=== PATIENT | female | born 1985 | race Caucasian/White ===

== ENCOUNTER 2016-06-26 06:03 | Emergency (ER) | payer SELFPAY ==
[~2016-06-26] VITALS: Ht 165.1 cm; Wt 55.3 kg
[~2016-06-26 06:03] MED LIST: RANI300T7 PO; ZOLM5TAB10 PO
[2016-06-26] MEDS ORDERED: KETOROLAC TROMETHAMINE INJ 30 MG/ML VIAL ONE (06:47)
[2016-06-26] MEDS ORDERED: IV NS 0.9% 1,000 ML ONE (06:47)
[2016-06-26] MEDS ORDERED: diphenhydrAMINE HCL 50 MG/ML VIAL ONE (06:47)
[2016-06-26] MEDS ORDERED: IV SET PRIMARY 1 EA INFUS.SET MC ONE (06:47)
[2016-06-26] MEDS ORDERED: LORAZEPAM INJ 2 MG/ML VIAL ONE (06:48)
[2016-06-26] MEDS ORDERED: ONDANSETRON HCL/PF 4 MG/2 ML VIAL ONE (06:49)
[2016-06-26] MEDS ORDERED: KETOROLAC TROMETHAMINE INJ 30 MG/ML VIAL IV ONE (07:00)
[2016-06-26] MEDS ORDERED: METOCLOPRAMIDE HCL 10 MG/2 ML VIAL IV ONE (07:00)
[2016-06-26] MEDS ORDERED: LORAZEPAM INJ 2 MG/ML VIAL IV ONE (07:00)
[2016-06-26] MEDS ORDERED: ONDANSETRON HCL/PF 4 MG/2 ML VIAL IV ONE (07:00)
[2016-06-26] MEDS ORDERED: diphenhydrAMINE HCL 50 MG/ML VIAL IV ONE (07:00)
[2016-06-26] MEDS ORDERED: IV NS 0.9% 1,000 ML BAG IV ONE (07:00)
[2016-06-26] MEDS ORDERED: LIDOCAINE 5% (PATCH) 1 EA PATCH TP SCH (07:30)
[2016-06-26] MEDS ORDERED: HYDROCODONE/APAP 5/325MG 1 EACH TABLET PO ONE (07:30)
[2016-06-26] MEDS ORDERED: HYDROCODONE/APAP 5/325MG 1 EACH TABLET ONE (07:46)
[2016-06-26 08:30] VITALS: BP 128/97
== END 2016-06-26 08:31 | disposition home or self-care (01) ==
LOC: ER 06:07
DX: G43.909 Migraine, unspecified, not intractable, without status migrainosus (principal); K21.9 Gastro-esophageal reflux disease without esophagitis; Z90.49 Acquired absence of other specified parts of digestive tract; Z88.6 Allergy status to analgesic agent; Z88.8 Allergy status to other drugs, medicaments and biological substances
CPT/HCPCS: 96361; 96374; 96375; 99284; A4606; J1200; J1885; J2060; J2405; J7030; Z7610

== ENCOUNTER 2016-09-29 19:03 | Emergency (ER) | payer MEDICARE, MEDICAID ==
[~2016-09-29] VITALS: Ht 165.1 cm; Wt 50.8 kg
--- NOTE | 2016-09-29 19:20 | NUR ---
TO BED 3 AMBULATORY C/O FEVER AND N/V/D ON MONDAY, NOW C/O DECREASE APPETITE. PT AAOX4 NO ACUTE DISTRESS NOTED, RESP EVEN AND UNLABORED.URINE SAMPLE COLLECTED. PENDING ER MD ZAIDI.
--- NOTE | 2016-09-29 19:33 | NUR ---
LILA HOLLAND AT BEDSIDE TO DYAN CHILEL.
--- NOTE | 2016-09-29 19:44 | NUR ---
MACARIO PARK AT BEDSIDE TO DRAW BLOOD FROM PICC LINE.
[2016-09-29] MEDS ORDERED: ONDANSETRON HCL/PF 4 MG/2 ML VIAL ONE (19:46)
[2016-09-29] MEDS ORDERED: MORPHINE SULFATE INJ 4 MG/ML DISP.SYRIN ONE (19:46)
--- NOTE | 2016-09-29 19:50 | NUR ---
RN AT BEDSIDE TO MEDICATE PT.
[2016-09-29 19:54] LABS: APPEARANCE,URINE Clear (CLEAR); BLOOD, URINE Trace-intact Ery/uL (NEGATIVE); COLOR,URINE Yellow (YELLOW); KETONES,URINE 40 (NEGATIVE); LEUKOCYTE ESTERASE ,URINE Small (NEGATIVE); NITRITE, URINE Negative (NEGATIVE); PROTEIN,URINE Trace mg/dl (NEGATIVE); UGLUCOSE Negative (NEGATIVE); UROBILINOGEN,URINE 0.2 EU/dL (0.2)
[2016-09-29 19:58] LABS: BASOPHILS % (AUTO) 0.3 % (0.0-2.0); EOSINOPHILS # (AUTO) 0.1 /CMM (0.0-0.7); EOSINOPHILS % (AUTO) 2.4 % (0.0-6.0); HEMATOCRIT 31 % (33-45); HEMOGLOBIN 10.4 g/dL (11.5-14.8); LYMPHOCYTES # (AUTO) 1.1 /CMM (0.8-4.8); LYMPHOCYTES % (AUTO) 23.7 % (20.0-44.0); MEAN CORPUSCULAR HEMOGLOBIN 29 PG (26.0-33.0); MEAN CORPUSCULAR HGB CONC 34 g/dl (31.0-36.0); MEAN CORPUSCULAR VOLUME 87 fL (82-100); MONOCYTES # (AUTO) 0.4 /CMM (0.1-1.30); MONOCYTES % (AUTO) 7.6 % (2.0-12.0); NEUTROPHILS # (AUTO) 3.2 /CMM (1.8-8.9); PLATELET COUNT (AUTO) 210 /CMM (150-450); RDW COEFFICIENT OF VARIATION 12.7 (11.5-15.0); WHITE BLOOD COUNT (AUTO) 4.9 K/uL (4.3-11.0)
[2016-09-29 19:59] LABS: BILIRUBIN,URINE SMALL (NEGATIVE); PREGNANCY TEST URINE QUAL NEG (NEGATIVE)
[2016-09-29] MEDS ORDERED: ONDANSETRON HCL/PF 4 MG/2 ML VIAL IV ONE (20:00)
[2016-09-29] MEDS ORDERED: MORPHINE SULFATE INJ 2 MG/ML DISP.SYRIN IV ONE (20:00)
[2016-09-29 20:01] LABS: CALCIUM, SERUM 8.6 mg/dL (8.5-10.1); CREATININE 0.8 mg/dL (0.6-1.3); POTASSIUM 3.8 mmol/L (3.5-5.1)
[2016-09-29 20:06] LABS: ALBUMIN 4.4 g/dL (3.4-5.0); BILIRUBIN,DIRECT 0.1 mg/dL (0.0-0.2); BILIRUBIN,TOTAL 0.5 mg/dL (0.2-1.0); TOTAL PROTEIN, SERUM 7.1 g/dL (6.4-8.2)
[2016-09-29 20:12] LABS: ADD URINE CULTURE YES; BACTERIA,URINE Many /HPF (None Seen); SQUAMOUS EPITHELIAL CELL,UR Moderate /HPF (None Seen)
[2016-09-29 20:13] LABS: MUCUS,URINE Many /LPF (None Seen)
[2016-09-29] MEDS ORDERED: PANTOPRAZOLE 40 MG VIAL ONE (21:07)
--- NOTE | 2016-09-29 21:29 | NUR ---
Patient discharged to home in stable condition. Written and verbal after care instructions given. Patient verbalizes understanding of instruction. ambulatory with a steady gait noted. pt aaox4 no acute distress noted, resp even and unlabored. advice pt not to drive or operate any machinery due to pt was given morphine. pt verbalize understanding. pt mom at bedside to take pt home.
[2016-09-29 21:30] VITALS: BP 127/75
[2016-09-29] MEDS ORDERED: PANTOPRAZOLE 40 MG VIAL IV ONE (21:30)
== END 2016-09-29 21:30 | disposition home or self-care (01) ==
LOC: ER 19:05
DX: N39.0 Urinary tract infection, site not specified (principal); D64.9 Anemia, unspecified; G43.909 Migraine, unspecified, not intractable, without status migrainosus; K21.9 Gastro-esophageal reflux disease without esophagitis; K85.90 Acute pancreatitis without necrosis or infection, unspecified; Z90.49 Acquired absence of other specified parts of digestive tract; Z88.6 Allergy status to analgesic agent; Z88.8 Allergy status to other drugs, medicaments and biological substances
CPT/HCPCS: 36415; 80048-TC; 80076-TC; 81000-TC; 83690-TC; 84703-TC; 85025-TC; 87086-TC; A4606; C9113; J2270; J2405; Z7610

== ENCOUNTER 2016-11-20 01:14 | Emergency (ER) | payer MEDICARE, MEDICAID ==
[~2016-11-20] VITALS: Ht 165.1 cm; Wt 54.4 kg
--- NOTE | 2016-11-20 01:30 | NUR ---
TO BED 07 A 31 YO FEMALE BIBSELF, C/O EPIGASTRIC PAIN SINCE 10PM AFTER EATING A SALAD WITH FISH, WITH N/V. VSS. NO S/S OF ACUTE DISTRESS. BREATHING EVEN AND UNLABORED. NONDIAPHORETIC. GOWNED. COMFORT MEASURES RENDERED. AWAITING FOR ER MD ZAIDI.
[2016-11-20] MEDS ORDERED: ONDANSETRON HCL/PF 4 MG/2 ML VIAL ONE (01:59)
[2016-11-20] MEDS ORDERED: MORPHINE SULFATE INJ 4 MG/ML DISP.SYRIN ONE ×2 (01:59→03:59)
[2016-11-20] MEDS ORDERED: diphenhydrAMINE HCL 50 MG/ML VIAL ONE (01:59)
[2016-11-20] MEDS ORDERED: FAMOTIDINE/PF INJ 20 MG/2 ML VIAL IV ONE ×2 (01:59→02:00)
[2016-11-20] MEDS ORDERED: MORPHINE SULFATE INJ 2 MG/ML DISP.SYRIN IV ONE ×2 (02:00→04:00)
[2016-11-20] MEDS ORDERED: ONDANSETRON HCL/PF 4 MG/2 ML VIAL IV ONE (02:00)
[2016-11-20] MEDS ORDERED: diphenhydrAMINE HCL 50 MG/ML VIAL IV ONE (02:00)
[2016-11-20 02:08] LABS: BASOPHILS % (AUTO) 0.5 % (0.0-2.0); EOSINOPHILS # (AUTO) 0.2 /CMM (0.0-0.7); EOSINOPHILS % (AUTO) 3.1 % (0.0-6.0); HEMATOCRIT 27 % (33-45); HEMOGLOBIN 8.9 g/dL (11.5-14.8); LYMPHOCYTES # (AUTO) 2.6 /CMM (0.8-4.8); LYMPHOCYTES % (AUTO) 48.5 % (20.0-44.0); MEAN CORPUSCULAR HEMOGLOBIN 28 PG (26.0-33.0); MEAN CORPUSCULAR HGB CONC 33 g/dl (31.0-36.0); MEAN CORPUSCULAR VOLUME 85 fL (82-100); MONOCYTES # (AUTO) 0.4 /CMM (0.1-1.30); MONOCYTES % (AUTO) 7.8 % (2.0-12.0); NEUTROPHILS # (AUTO) 2.1 /CMM (1.8-8.9); NEUTROPHILS % (AUTO) 40.1 % (43.0-81.0); PLATELET COUNT (AUTO) 289 /CMM (150-450); RDW COEFFICIENT OF VARIATION 15.1 (11.5-15.0); RED BLOOD CELL COUNT(AUTO) 3.19 MIL/uL (4.0-5.2); WHITE BLOOD COUNT (AUTO) 5.3 K/uL (4.3-11.0)
[2016-11-20 02:17] LABS: CALCIUM, SERUM 8.5 mg/dL (8.5-10.1); CREATININE 0.6 mg/dL (0.6-1.3)
[2016-11-20 02:22] LABS: ALBUMIN 3.6 g/dL (3.4-5.0); BILIRUBIN,DIRECT 0.1 mg/dL (0.0-0.2); BILIRUBIN,TOTAL 0.2 mg/dL (0.2-1.0); TOTAL PROTEIN, SERUM 6.3 g/dL (6.4-8.2)
--- NOTE | 2016-11-20 03:10 | NUR ---
PATIENT REPORTED STILL FEELING NAUSEOUS AND THE EPIGASTRIC PAIN REOCCUR AT 9/10. DR ASCENCIO IS NOTIFIED AND HE SAID, "IM GOING TO GO SEE HER."
[2016-11-20] MEDS ORDERED: MORPHINE SULFATE INJ 2 MG/ML DISP.SYRIN ONE (03:59)
--- NOTE | 2016-11-20 04:29 | NUR ---
Patient discharged to home in stable condition. Written and verbal after care instructions given. Patient verbalizes understanding of instruction. Patient is ambulatory with a steady gait, accompanied by familiy. VSS. NAD noted.
[2016-11-20 04:30] VITALS: BP 112/71
== END 2016-11-20 04:31 | disposition home or self-care (01) ==
LOC: ER 01:15
DX: R10.13 Epigastric pain (principal); G89.29 Other chronic pain; D64.9 Anemia, unspecified; K85.90 Acute pancreatitis without necrosis or infection, unspecified; Z90.49 Acquired absence of other specified parts of digestive tract; Z88.5 Allergy status to narcotic agent; Z88.8 Allergy status to other drugs, medicaments and biological substances
CPT/HCPCS: 36415; 80048; 80076; 83690; 85025; 96374; 96375; 96376; 99284; A4606; J1200; J2270 ×3; J2405; J3490; Z7610

== ENCOUNTER 2016-12-24 23:13 | Emergency (ER) | payer MEDICARE, MEDICAID ==
[~2016-12-24] VITALS: Ht 165.1 cm; Wt 49.9 kg
--- NOTE | 2016-12-25 00:12 | NUR ---
DR. EDOUARD AT BEDSIDE FOR EVAL.
[2016-12-25] MEDS ORDERED: ONDANSETRON HCL/PF 4 MG/2 ML VIAL ONE (00:15)
--- NOTE | 2016-12-25 00:16 | NUR ---
DR. EDOUARD SPEAKING TO DR. FAJARDO REGARDING POC
--- NOTE | 2016-12-25 00:22 | NUR ---
PT. HAS RUE-DL PICC LINE. 0.9%NS ONE LITER BOLUS STARTED. ZOFRAN 8MG IVP ADM.ALSO.
[2016-12-25] MEDS ORDERED: diphenhydrAMINE HCL 50 MG/ML VIAL IV ONE (00:30)
[2016-12-25] MEDS ORDERED: ONDANSETRON HCL/PF - ER 4 MG/2 ML VIAL IV ONE (00:30)
[2016-12-25] MEDS ORDERED: IV NS 0.9% 1,000 ML BAG IV ONE (00:30)
[2016-12-25] MEDS ORDERED: HYDROMORPHONE INJ 2 MG/ML DISP.SYRIN IV ONE (00:30)
[2016-12-25] MEDS ORDERED: diphenhydrAMINE HCL 50 MG/ML VIAL ONE (00:39)
[2016-12-25] MEDS ORDERED: HYDROMORPHONE INJ 2 MG/ML DISP.SYRIN ONE (00:39)
--- NOTE | 2016-12-25 00:47 | NUR ---
PT. ADM. DILAUDID 2MG SLOW IVP & BENADRYL 50MG IVP FOR COMFORT. PT. IS MAKING "BELCHING" NOISES FROM THROAT. PT'S MOTHER AT BS.
[2016-12-25] MEDS ORDERED: FAMOTIDINE/PF INJ 20 MG/2 ML VIAL IV ONE ×2 (00:59→01:00)
--- NOTE | 2016-12-25 01:30 | NUR ---
PT. WAS ADM. PEPCID 20MG IVP. PT. HAS "DRY HEAVES" STILL. 0.9%NS BOLUS INFUSED. Addendum: 12/25/16 at 0154 by NABEEL MD AWARE ONLY HALF THE BAG INFUSED. PT. CAN BE DC'D.
--- NOTE | 2016-12-25 02:01 | NUR ---
Patient discharged to home in stable condition. Written and verbal after care instructions given. Patient verbalizes understanding of instruction. ambulatory with a steady gait. pt has jaelyn picc line intact and patent. no s/s infection or infiltration. instructed pt not to drive. pt verbalize understanding.
[2016-12-25 02:22] VITALS: BP 98/50
== END 2016-12-25 02:02 | disposition home or self-care (01) ==
LOC: ER 23:14
DX: R10.13 Epigastric pain (principal); G43.909 Migraine, unspecified, not intractable, without status migrainosus; G89.4 Chronic pain syndrome; R11.10 Vomiting, unspecified; K21.9 Gastro-esophageal reflux disease without esophagitis; Z90.89 Acquired absence of other organs; Z88.8 Allergy status to other drugs, medicaments and biological substances; Z76.5 Malingerer [conscious simulation]; Z90.49 Acquired absence of other specified parts of digestive tract
CPT/HCPCS: 96361; 96374; 96375; 99284; A4606; J1170; J1200; J2405 ×2; J3490; J7030 ×2; Z7610

== ENCOUNTER 2017-01-21 23:08 | Emergency (ER) | payer MEDICARE, MEDICAID ==
[~2017-01-21] VITALS: Ht 165.1 cm; Wt 54.4 kg
--- NOTE | 2017-01-21 23:27 | NUR ---
PT BIBSELF C/O LEFT NECK AND SHOULDER PAIN. PT AOX3 RR EVEN AND UNLABORED. NO SOB NOTED. NAD NOTED. NO NVD AT THIS TIME. PT GOWNED WAITING FOR MD ZAIDI.
--- NOTE | 2017-01-21 23:30 | NUR ---
PT WITH SINGLE LUMEN PICC LINE ON KACEY PLACED PER HOME [facility].
--- NOTE | 2017-01-21 23:42 | NUR ---
DR. ASCENCIO AT BEDSIDE FOR EVAL.
--- NOTE | 2017-01-21 23:56 | NUR ---
PT REFUSED ICE PACKS. RISK AND BENEFITS EXPLAINED X3. PT STRONGLY REFUSED
--- NOTE | 2017-01-22 00:25 | NUR ---
DR ASCENCIO AT BEDSIDE SPEAKING TO PT REGARDING POC.
--- NOTE | 2017-01-22 00:45 | NUR ---
Patient discharged to home in stable condition. Written and verbal after care instructions given. Patient refused to sign d/c instruction. pt picc line intact and patent. no s/s infection or infiltration.
[2017-01-22 00:48] VITALS: BP 126/87
== END 2017-01-22 00:48 | disposition home or self-care (01) ==
LOC: ER 23:09
DX: G89.4 Chronic pain syndrome (principal); Z76.5 Malingerer [conscious simulation]; K21.9 Gastro-esophageal reflux disease without esophagitis; G43.909 Migraine, unspecified, not intractable, without status migrainosus; Z88.0 Allergy status to penicillin; Z88.6 Allergy status to analgesic agent; Z88.8 Allergy status to other drugs, medicaments and biological substances; Z91.040 Latex allergy status; Z90.49 Acquired absence of other specified parts of digestive tract; Z98.890 Other specified postprocedural states; Z90.89 Acquired absence of other organs
CPT/HCPCS: A4606; Z7502; Z7610

== ENCOUNTER 2017-05-24 02:17 | Emergency (ER) | payer MEDICARE, MEDICAID ==
--- NOTE | 2017-05-24 02:48 | NUR ---
Called for triage, no answer, no one in [place].
--- NOTE | 2017-05-24 02:54 | NUR ---
Called for triage, no answer.
--- NOTE | 2017-05-24 03:07 | NUR ---
Called for triage, no answer. LWBT.
== END 2017-05-24 03:09 | disposition left against medical advice (07) ==
LOC: ER 02:17
DX: Z53.21 Procedure and treatment not carried out due to patient leaving prior to being seen by health care provider (principal)

== ENCOUNTER 2019-10-27 19:08 | Emergency (ER) | payer MEDICARE, OTHER ==
[~2019-10-27] VITALS: Ht 165.1 cm; Wt 52.2 kg
--- NOTE | 2019-10-27 19:30 | NUR ---
PT CAME INTO THE ED FOR ABDOMINAL +N/V/D X 1 DAY. PT ALSO COMPLAINS OF LEFT SIDED BREAST PAIN. PT STATES SHE HAD PRIOR BREAST INFECTION D/T RUPTURED BREAST IMPLANT. PT AAOX4, VSS, RESPIRATIONS EVEN AND UNLABORED ON RA W/ AND NOTED. PT CONNECTED TO THE MONITOR AND POX
[2019-10-27] MEDS ORDERED: ONDANSETRON HCL/PF 4 MG/2 ML VIAL ONE (19:43)
--- NOTE | 2019-10-27 19:51 | NUR ---
GREGORIO DURHAM AT BEDSIDE
[2019-10-27] MEDS ORDERED: IV NS 0.9% 1,000 ML BAG IV ONE (20:00)
[2019-10-27] MEDS ORDERED: ONDANSETRON HCL/PF 4 MG/2 ML VIAL IVP ONE (20:00)
[2019-10-27] MEDS ORDERED: diphenhydrAMINE HCL 50 MG/ML VIAL ONE ×2 (20:16→21:52)
[2019-10-27] MEDS ORDERED: FAMOTIDINE/PF INJ 20 MG/2 ML VIAL IV ONE ×2 (20:16→20:30)
[2019-10-27] MEDS ORDERED: MORPHINE SULFATE INJ 4 MG/ML DISP.SYRIN ONE (20:16)
--- NOTE | 2019-10-27 20:29 | NUR ---
GRANITE WORKER AT BEDSIDE FOR BLOOD DRAW
[2019-10-27] MEDS ORDERED: diphenhydrAMINE HCL 50 MG/ML VIAL IV ONE ×2 (20:30→22:30)
[2019-10-27] MEDS ORDERED: MORPHINE SULFATE INJ 2 MG/ML DISP.SYRIN IV ONE (20:30)
[2019-10-27 20:45] LABS: BASOPHILS % (AUTO) 0.2 % (0.0-2.0); EOSINOPHILS % (AUTO) 0.7 % (0.0-6.0); HEMATOCRIT 38 % (33-45); HEMOGLOBIN 12.3 g/dL (11.5-14.8); LYMPHOCYTES # (AUTO) 1.7 /CMM (0.8-4.8); LYMPHOCYTES % (AUTO) 30.1 % (20.0-44.0); MEAN CORPUSCULAR HGB CONC 33 g/dl (31.0-36.0); MEAN CORPUSCULAR VOLUME 88 fL (82-100); MONOCYTES # (AUTO) 0.4 /CMM (0.1-1.30); MONOCYTES % (AUTO) 7.5 % (2.0-12.0); NEUTROPHILS # (AUTO) 3.6 /CMM (1.8-8.9); NEUTROPHILS % (AUTO) 61.5 % (43.0-81.0); PLATELET COUNT (AUTO) 221 /CMM (150-450); RED BLOOD CELL COUNT(AUTO) 4.27 MIL/uL (4.0-5.2); WHITE BLOOD COUNT (AUTO) 5.8 K/uL (4.3-11.0)
[2019-10-27 20:56] LABS: APPEARANCE,URINE Clear (CLEAR); BILIRUBIN,URINE Negative (NEGATIVE); BLOOD, URINE Small Ery/uL (NEGATIVE); COLOR,URINE Yellow (YELLOW); KETONES,URINE Negative (NEGATIVE); LEUKOCYTE ESTERASE ,URINE Negative (NEGATIVE); NITRITE, URINE Negative (NEGATIVE); PROTEIN,URINE Negative (NEGATIVE); UGLUCOSE Negative (NEGATIVE); UROBILINOGEN,URINE 0.2 EU/dL (0.2)
[2019-10-27 21:06] LABS: BACTERIA,URINE Few /HPF (None Seen); SQUAMOUS EPITHELIAL CELL,UR Few /HPF (None Seen); WBC,URINE 0-2 /HPF (0-3)
[2019-10-27 21:08] LABS: ALBUMIN 4.1 g/dL (3.4-5.0); BILIRUBIN,DIRECT 0.1 mg/dL (0.0-0.2); BILIRUBIN,TOTAL 0.2 mg/dL (0.2-1.0); CALCIUM, SERUM 9.1 mg/dL (8.5-10.1); CREATININE 0.8 mg/dL (0.6-1.3); TOTAL PROTEIN, SERUM 7.4 g/dL (6.4-8.2)
[2019-10-27] MEDS ORDERED: IV NS 0.9% 250 ML IV ONE (21:27)
[2019-10-27] MEDS ORDERED: CT SWABBABLE VALVE TRANS SET 1 EA INFUS.SET MC ONE (21:27)
[2019-10-27] MEDS ORDERED: IOHEXOL-300 100 ML VIAL IV ONE (21:27)
--- NOTE | 2019-10-27 21:33 | NUR ---
PT TAKEN TO CT
[2019-10-27] MEDS ORDERED: HYDROMORPHONE 1 MG/1 ML DISP.SYRIN ONE (21:53)
[2019-10-27] MEDS ORDERED: HYDROMORPHONE INJ 0.5 MG/0.5 ML SYRINGE IV ONE (22:30)
[2019-10-27 23:33] VITALS: BP 100/87
--- NOTE | 2019-10-27 23:33 | NUR ---
Patient discharged to home in stable condition. Written and verbal after care instructions given. Patient verbalizes understanding of instruction.IV removed. Catheter intact and site benign. Pressure and 4x4 applied to site. No bleeding noted.
== END 2019-10-27 23:33 | disposition home or self-care (01) ==
LOC: ER 19:14
DX: T81.31XA Disruption of external operation (surgical) wound, not elsewhere classified, initial encounter (principal); K59.00 Constipation, unspecified; R14.0 Abdominal distension (gaseous); M35.9 Systemic involvement of connective tissue, unspecified; K22.8 Other specified diseases of esophagus; N64.4 Mastodynia; R11.2 Nausea with vomiting, unspecified; G43.909 Migraine, unspecified, not intractable, without status migrainosus; K21.9 Gastro-esophageal reflux disease without esophagitis; G89.29 Other chronic pain; Z90.89 Acquired absence of other organs; Z95.828 Presence of other vascular implants and grafts; Z98.890 Other specified postprocedural states; Z88.0 Allergy status to penicillin; Z88.6 Allergy status to analgesic agent; Z88.8 Allergy status to other drugs, medicaments and biological substances; Z91.040 Latex allergy status; Z79.899 Other long term (current) drug therapy
CPT/HCPCS: 36415; 71260; 74177; 80048; 80076; 81001; 83605; 83690; 84484; 84703; 85025; 87040 ×2; 87070; 93005; 96361; 96374; 96375; 96376; 99285; J1170; J1200 ×2; J2270; J2405; J3490; J7030; J7050; Q9967; 81000-TC

== ENCOUNTER 2019-10-31 11:30 | Outpatient (CLI) | payer MEDICARE, OTHER | END 2019-10-31 23:59 | disposition home or self-care (01) | LOC: WOU 11:30 | PROVIDERS: ATTEND Surgery | DX: A31.9 Mycobacterial infection, unspecified (principal); M35.9 Systemic involvement of connective tissue, unspecified; N65.0 Deformity of reconstructed breast; K86.1 Other chronic pancreatitis; Z88.0 Allergy status to penicillin; Z91.040 Latex allergy status | CPT/HCPCS: G0463 ==

== ENCOUNTER 2019-11-05 19:09 | Emergency (ER) | payer MEDICARE, OTHER ==
[~2019-11-05] VITALS: Ht 165.1 cm; Wt 52.2 kg
--- NOTE | 2019-11-05 19:46 | NUR ---
PT PRESENTED TO THE ER WITH A C/O ABD PAIN AND PAIN/BURNING WITH URINATION. PT IS AFEBRILE. NO S/S OF FEVER, N/V OR FLU LIKE SYMPTOMS. PT AMBULATED TO THE BATHROOM WITH A STEADY GAIT. URINE SAMPLE IS OBTAINED AND SENT TO LAB.
--- NOTE | 2019-11-05 19:48 | NUR ---
DR MOELLER IS AT THE BEDSIDE.
[2019-11-05] MEDS ORDERED: diphenhydrAMINE HCL 50 MG/ML VIAL ONE (20:12)
[2019-11-05 20:17] LABS: APPEARANCE,URINE Clear (CLEAR); BILIRUBIN,URINE Negative (NEGATIVE); BLOOD, URINE Moderate Ery/uL (NEGATIVE); COLOR,URINE Yellow (YELLOW); KETONES,URINE Negative (NEGATIVE); LEUKOCYTE ESTERASE ,URINE Negative (NEGATIVE); NITRITE, URINE Negative (NEGATIVE); PROTEIN,URINE Negative (NEGATIVE); UGLUCOSE Negative (NEGATIVE); UROBILINOGEN,URINE 0.2 EU/dL (0.2)
--- NOTE | 2019-11-05 20:20 | NUR ---
PHLBOTOMIST IS AT THE BEDSIDE.
--- NOTE | 2019-11-05 20:25 | NUR ---
XRAY IN PROGRESS AT THE BEDSIDE.
[2019-11-05 20:26] LABS: BACTERIA,URINE Many /HPF (None Seen); SQUAMOUS EPITHELIAL CELL,UR Few /HPF (None Seen); WBC,URINE 0-2 /HPF (0-3)
--- NOTE | 2019-11-05 20:26 | NUR ---
PT HAS A CHAIM PORT.
[2019-11-05 20:28] LABS: BASOPHILS % (AUTO) 0.3 % (0.0-2.0); EOSINOPHILS % (AUTO) 1.3 % (0.0-6.0); HEMATOCRIT 37 % (33-45); HEMOGLOBIN 12.1 g/dL (11.5-14.8); LYMPHOCYTES # (AUTO) 1.5 /CMM (0.8-4.8); LYMPHOCYTES % (AUTO) 22.9 % (20.0-44.0); MEAN CORPUSCULAR HGB CONC 32 g/dl (31.0-36.0); MEAN CORPUSCULAR VOLUME 89 fL (82-100); MONOCYTES # (AUTO) 0.4 /CMM (0.1-1.30); MONOCYTES % (AUTO) 5.8 % (2.0-12.0); NEUTROPHILS # (AUTO) 4.6 /CMM (1.8-8.9); NEUTROPHILS % (AUTO) 69.7 % (43.0-81.0); PLATELET COUNT (AUTO) 221 /CMM (150-450); RED BLOOD CELL COUNT(AUTO) 4.22 MIL/uL (4.0-5.2); WHITE BLOOD COUNT (AUTO) 6.6 K/uL (4.3-11.0)
[2019-11-05] MEDS ORDERED: diphenhydrAMINE HCL 50 MG/ML VIAL IV ONE (20:30)
[2019-11-05 20:46] LABS: ALBUMIN 4.2 g/dL (3.4-5.0); BILIRUBIN,DIRECT 0.1 mg/dL (0.0-0.2); BILIRUBIN,TOTAL 0.1 mg/dL (0.2-1.0); CALCIUM, SERUM 9.1 mg/dL (8.5-10.1); CREATININE 0.7 mg/dL (0.6-1.3); POTASSIUM 4.2 mmol/L (3.5-5.1); TOTAL PROTEIN, SERUM 7.4 g/dL (6.4-8.2)
--- NOTE | 2019-11-05 21:04 | NUR ---
DR MOELLER IS AT THE BEDSIDE.
[2019-11-05 21:28] VITALS: BP 112/78
--- NOTE | 2019-11-05 21:28 | NUR ---
PT WAS REFUSING TO LEAVE. PT WANTS TO BE ADMITTED TO THE HOSPITAL FOR FURTHER TESTING. PER PT, SHE WAS JUST WITH HER PMD AND A GI SPECIALIST, WHO COULD NOT FIND ANYTHING. PT HAD A CT LAST WEEK AND IT WAS NEGATIVE FOR ANYTHING OTHER THAN POSSIBLE CONSTIPATION. XRAY TODAY SHOWED PT WAS SLIGHTLY CONSTIPATED. PT DENIES CONSTIPATION, BUT IS NOW C/O MIGRAINE BARRAZA ALONG WITH THE ABDOMINAL PAIN AND APPEARS AGGITATED. PT STATED THAT THE DR SHOULD DO MORE TESTING. PT WAS TOLD THAT THE ER WAS ONLY ABLE TO DO CERTAIN TESTING, OTHER TESTING WOULD REQUIRE HER TO F/U WITH HER PMD AND GI MD. PT WAS UPSET. PT REC'D A COPY OF ALL LABS AND IMAGING FINDINGS. PT WAS DISCHARGED AND ESCORTED OUT BY SECURITY.
== END 2019-11-05 21:28 | disposition home or self-care (01) ==
LOC: ER 19:14
DX: R14.0 Abdominal distension (gaseous) (principal); R10.30 Lower abdominal pain, unspecified; G43.909 Migraine, unspecified, not intractable, without status migrainosus; K21.9 Gastro-esophageal reflux disease without esophagitis; G89.29 Other chronic pain; Z90.89 Acquired absence of other organs; Z98.890 Other specified postprocedural states; Z90.49 Acquired absence of other specified parts of digestive tract; Z88.0 Allergy status to penicillin; Z88.6 Allergy status to analgesic agent; Z88.8 Allergy status to other drugs, medicaments and biological substances; Z91.040 Latex allergy status; Z79.899 Other long term (current) drug therapy
CPT/HCPCS: 36415; 74021; 80048; 80076; 81001; 83690; 84703; 85025; 96374; 99284; J1200; 81000-TC; 87086-TC

== ENCOUNTER 2019-11-28 11:50 | Outpatient (CLI) | payer MEDICARE, OTHER | END 2019-11-28 23:59 | disposition home or self-care (01) | LOC: WOU 11:50 | PROVIDERS: ATTEND Surgery | DX: G72.41 Inclusion body myositis [IBM] (principal); M35.9 Systemic involvement of connective tissue, unspecified; N65.0 Deformity of reconstructed breast; K86.1 Other chronic pancreatitis | CPT/HCPCS: G0463 ==